=== PATIENT | male | born 1940 ===

== ENCOUNTER → 2016-10-21 | Outpatient (REF) | LOC: ZLAB.WCH 10:44 | DX: Z01.89 Encounter for other specified special examinations (principal) ==

== ENCOUNTER 2021-02-20 07:59 | Inpatient (IN) | payer MEDICARE ==
[~2021-02-20] VITALS: Ht 172.7 cm; Wt 74.2 kg
[2021-02-20] MEDS ORDERED: ASPIRIN 81M81 MG/TA2 PO (18:29)
[2021-02-20] MEDS ORDERED: LIPITOR 10MG10 MG PO (18:29)
[2021-02-20 18:30] VITALS: BP 131/84; PULSE 123; TEMP 98.8
[2021-02-20] MEDS ORDERED: BUSPAR DIVIDOSE15 MG PO (18:30)
[2021-02-20] MEDS ORDERED: LOPRESSOR 225 MG/TAB PO (18:30)
--- NOTE | 2021-02-20 18:30 | NUR ---
PATIENT ADMITED INTO ROOM 349 VIA EMS FROM [facility]. PATIENT IS A&O. PATIENT LIVES WITH DAUGHTER AT HOME. DAUGHTER AT BEDSIDE. NOTED ON ARRIVAL PATIENT HR IN THE 120'S. [place] REPORTED HR OF 60'S. PATIENT ASYMPOTOMATIC. NOTIFIED HOSPITALIST AND CALLED FOR A STATE EKG. PATIENT'S DAUGHTER REPORTS HE HAD A-FIB IN LATE DECEMBER BUT CONVERTED RIGHT AWAY AND HAS NOT HAD AN ISSUE SINCE. EKG CONFIRMED A-FIB. ALL OTHER VSS. SEE ORDERS FOR TELE MONITOR. SENIOR MANAGER MMCOE NOTIFIED, NO TELE BOXES AVAILABE AT THIS TIME. HEAD TO TOE ASSESSMENT COMPLETE. HOSPITALIST CONTRACT ENGINEER TOOK EMS PAPERS AND IS WORKING ON ENTERING MED REC.
[2021-02-20] MEDS ORDERED: ELIQUIS 5MG PO (18:31)
[2021-02-20] MEDS ORDERED: SINEMET CR 50 M1 TER PO (18:31)
[2021-02-20] MEDS ORDERED: LEXAPRO 10MG10 MG PO (18:31)
[2021-02-20] MEDS ORDERED: REMERON 15M15 MG/TA1 PO (18:31)
[2021-02-20] MEDS ORDERED: REMERON30 MG PO (19:00)
--- NOTE | 2021-02-20 19:00 | NUR ---
TELE NOW INPLACE. HOSPITALIST AT BEDSIDE VISITING WITH PATIENT & DAUGHTER.
[2021-02-20 20:20] VITALS: BP 128/69; PULSE 59; TEMP 98.3
[2021-02-20 20:39] LABS: TROPONIN-I 0.013 ng/mL (0.000-0.035)
--- NOTE | 2021-02-20 22:00 | NUR ---
Patient is resting in bed with daughter in room. He is alert and oriented x 4, VSS, on tele, reports discomfort in the left leg. IV fluids running at 75 ml/hr. Guzman hose applied in right leg. Assessment completed. No further needs at this time. Call light within reach.
[2021-02-20 22:13] VITALS: BP 145/77; PULSE 67; TEMP 98.2
[2021-02-21] VITALS (7 sets, daily range): BP systolic 118–166; BP diastolic 61–86; PULSE 57–106; TEMP 98–99.2
--- NOTE | 2021-02-21 06:49 | NUR ---
Patient has been sleeping most of the night. He has been receiving NS fluidis 75/ml/hr. Schedule medication provided. ICE in left hip. No additional pain med required. Shift report will be given to day nurse.
[2021-02-21 07:59] LABS: BASO % 0.4 % (0.0-2.0); EOS # 0.5 (0.0-0.7); EOS % 5.1 % (0-4.0); GRAN # 6.3 (1.4-6.5); GRAN % 64.5 % (42.2-75.2); HEMOGLOBIN 11.1 g/dl (13.5-18.0); LYMPH # 1.9 (1.2-3.4); LYMPH % 19.9 % (20.0-51.0); MEAN CELL VOLUME 94 fl (80.0-100.0); MEAN CORPUSCULAR HEMOGLOBIN 30 pg (27.0-31.0); MEAN CORPUSCULAR HGB CONC 32 g/dl (33.0-37.0); MEAN PLATELET VOLUME 10.5 fl (7.4-10.4); MONO # 0.9 (0.1-0.6); MONO % 9.6 % (1.7-9.3); PLATELET COUNT 150 K/mm3 (130-400); RED BLOOD COUNT 3.72 M/mm3 (4.20-5.60); REDCELL DISTRIBUTION WIDTH-CV 13.3 % (11.5-14.5)
[2021-02-21 08:00] LABS: HEMATOCRIT 34.9 % (42.0-52.0)
[2021-02-21 08:06] LABS: INR 1.3 (0.8-3.0); PROTHROMBIN TIME 14.2 SECONDS (9.7-12.8)
--- NOTE | 2021-02-21 09:24 | NUR ---
First visit from the supply chain technician. Patient was asleep. Senior Technical Specialist prayed for patient while standing outside their door.
--- NOTE | 2021-02-21 11:06 | NUR ---
SW met with patient at b/s to discuss d/c needs. Patient states he lives with his daughter, son n law and a grandchild in [place] where there are no stairs. He is independent with ADL's, he has grab bars in the bathroom, a walker, cane, and a shower bench. Patient is currently receiving HHC through [facility]. We discussed possible rehab at time of d/c and he is agreeable but preferred this worker speak with his dtr, Georgina, who is also his designated DPOA. GRACIELA spoke with Georgina via phone and she confirmed the above info. She states that patient was in [facility] prior and this would be their preference if rehab is needed. Patient is scheduled for surg 02/22 and GRACIELA will follow. Patient sees Nga Corea PA-C and receives meds through [facility]. *Patient may d/c to rehab; GRACIELA will cont to follow
--- NOTE | 2021-02-21 12:20 | NUR ---
PATIENT APPEARS TO BE IN A-FIB/A-FLUTTER FROM 100-125. HOSPITALIST NOTIFIED. STAT EKG.
--- NOTE | 2021-02-21 12:27 | NUR ---
RT AT BEDSIDE NOW TO OBTAIN EKG
[2021-02-21 12:43] LABS: CALCIUM 8.1 mg/dL (8.4-10.2); CREATININE, serum 1.29 (0.66-1.25)
--- NOTE | 2021-02-21 22:29 | NUR ---
Patient assessed around 1999. Alert, disoriented to time, thougt it was morning. Reoriented very easily. Reports some pain to left hip, only with movement. Peripheral IV to right forearm, with fluids running per orders. Denies SOB and dyspnea. LS CTA. Respirations even and unlabored. Capillary refill less than 3 seconds. Non-tenting skin turgor. BSAx4. Abdomen soft and non-tender. No edema. Ice to left hip, elevated on pillow. Patient had spilled urinal. Bed changed and bed bath given. Called and and updated daughter on paitent as requested. Patient voices no questions, needs, or concerns at this time. Resting in bed with call light within reach.
[2021-02-22] VITALS (11 sets, daily range): BP systolic 99–167; BP diastolic 51–83; PULSE 50–74; TEMP 98.2–98.9
--- NOTE | 2021-02-22 05:05 | NUR ---
Patient has received scheduled Acetaminophen per orders. Has been calling for assistance with urinal. Has been NPO since midnight for left hip surgery scheduled for today. Voices no questions, needs, or concerns at this time. Resting in bed with call light within reach. Bed alarm on. IV fluids continue per orders.
[2021-02-22 07:00] LABS: BASO # 0.1 (0.0-0.2); BASO % 0.5 % (0.0-2.0); EOS # 0.5 (0.0-0.7); EOS % 4.6 % (0-4.0); GRAN # 6.9 (1.4-6.5); GRAN % 68.5 % (42.2-75.2); HEMOGLOBIN 10.9 g/dl (13.5-18.0); LYMPH # 1.6 (1.2-3.4); MEAN CELL VOLUME 93 fl (80.0-100.0); MEAN CORPUSCULAR HEMOGLOBIN 30 pg (27.0-31.0); MEAN CORPUSCULAR HGB CONC 32 g/dl (33.0-37.0); MEAN PLATELET VOLUME 10.4 fl (7.4-10.4); MONO % 9.9 % (1.7-9.3); PLATELET COUNT 137 K/mm3 (130-400); RED BLOOD COUNT 3.65 M/mm3 (4.20-5.60); REDCELL DISTRIBUTION WIDTH-CV 13.1 % (11.5-14.5)
[2021-02-22 07:01] LABS: HEMATOCRIT 33.9 % (42.0-52.0)
[2021-02-22 07:14] LABS: CREATININE, serum 1.27 (0.66-1.25)
--- NOTE | 2021-02-22 08:30 | NUR ---
PATIENT IS A&O WITH OCCATIONAL FORGETFULNESS NOTED. VSS ON TELE. NO C/O PAIN IN LLE. PATIENT SCHEDULED FOR SURGICAL REPAIR OF THE LEFT HIP FRACTURE TODAY. NPO. CONSENT ON CHART. AM MEDS GIVEN WITH A SIP OF WATER. HEAD TO TOE ASSESSMENT COMPLETE, SEE CHARTING. NO OTHER NEEDS AT THIS TIME. CALL LIGHT IN REACH. BED ALARM ON.
--- NOTE | 2021-02-22 09:11 | NUR ---
Assistive Technology Trainer followed up with patient to review discharge plan and discuss a second preference. SW reviewed options including local SNFs and patient would like SW to speak with his daughter, Georgina about this. GRACIELA contacted Georgina who confirmed [facility] is first preference and selected [facility] as second preference. Georgina also advised that she would be agreeable to provide transportation upon discharge if patient goes to [facility]. GRACIELA contacted Ayde at [facility] who advised patient has been there before and will review referral. GRACIELA also contacted Delia at [facility] and faxed referral. Discharge Plan: SNF, 1st preference [facility], 2nd preference [facility]
--- NOTE | 2021-02-22 09:30 | NUR ---
CALLED DAUGHTER TO OBTAIN CONCENT FOR SURGERY OVER THE PHONE WITH TWO RN'S AND GAVE DAUGHTER PATIENT STATUS UPDATE. DAUGHTER PLANS TO BE HERE LATER THIS AM.
--- NOTE | 2021-02-22 09:58 | NUR ---
TELE CALLED AND REPORTED PATIENT IS NOW IN A-FIB IN THE 120'S. HOSPITALIST & ORTHO NOTIFIED. PATIENT DID RECEIVE SCHEDULED AM DOSE OF METOPROLOL 12.5MG. SEE CARDIOLOGY CONSULT. PATIENT SCHEDULED FOR SURGERY TODAY TO REPAIR LEFT HIP FX. CONSENT ON CHART. NPO. AWAITING ORDERS FROM CARDIOLOGY
--- NOTE | 2021-02-22 11:05 | NUR ---
PATIENT GOING DOWN TO OR VIA BED. CLEARED AFTER SECOND DOSE OF CARDIAC MEDS. PATIENT OFF FLOOR TO OR
--- NOTE | 2021-02-22 13:22 | NUR ---
Partner spoke with Delia at [facility] who advised they could tentatively accept pending therapy notes and bed availability. Discharge Plan: [facility] or [facility]
--- NOTE | 2021-02-22 13:35 | NUR ---
PATIENT BACK IN ROOM POST OP. A&O. VSS ON TELE. HR NOW SR IN THE 50'S. DENIES PAIN OR NAUSEA. PATIENT DOING WELL POST OP. DAUGHTER AT BEDSIDE. CALL LIGHT IN REACH. BED ALARM ON.
--- NOTE | 2021-02-22 21:00 | NUR ---
Patient is sleeping in bed, easily arousable, alert and oriented x 4. Reports no pain, vital sighs stable, no nausea or vomiting. Tele in place. SCD removed and re applied. Left hip cover with 3 sites with gauze and tegaderm. Assessment completed. Meds provided. No further needs at this time. call lighe within reach.
--- NOTE | 2021-02-23 00:42 | NUR ---
Patient was disoriented but calm. He asked why he is in the hospital. VSS. Reoriented and explained reasons and interventions. Patient came back to sleep.
[2021-02-23 03:43] VITALS: BP 141/67; PULSE 60; TEMP 98.7
--- NOTE | 2021-02-23 05:28 | NUR ---
Patient has had a very calm night. He is taking his scheduled medications, no complains of pain, seems to be able to sleep with no problems. ICE placed in left hip. No further needs at this time.
[2021-02-23 07:25] LABS: CREATININE, serum 1.4 (0.66-1.25); POTASSIUM 4.1 mmol/L (3.4-5.0)
[2021-02-23 07:27] LABS: HEMOGLOBIN 10.5 g/dl (13.5-18.0)
[2021-02-23 07:43] LABS: HEMATOCRIT 33.9 % (42.0-52.0)
[2021-02-23 08:00] VITALS: BP 150/61; PULSE 56; TEMP 97.7
[2021-02-23 11:20] VITALS: BP 137/73; PULSE 65; TEMP 98.5
--- NOTE | 2021-02-23 11:23 | NUR ---
Pt assessment completed and charted, meds administered per aug. Pt alert, daughter at bedside this morning. Pt denied pain this morning during assessment being at rest. This nurse and GELATIN DYNAMITE PACKING OPERATOR assisted pt in standing w/ walker to use urinal at this time, pt c/o of some pain to left hip with movement and standing, requesting pain medication. Will administer per aug. Pt tolerated standing well w/ 2A and walker. Pt has IVF infusing w/o issue. Tolerating PO well. BS activeX4. Pt denies further needs at this time. Call light within reach.
--- NOTE | 2021-02-23 14:05 | NUR ---
Childcare Administrator faxed clinical updates to Delia at [facility]. GRACIELA followed up with Ayde at [facility] who advised at this time they anticipate that they will be able to accept patient upon discharge. SW attempted to contact patient's daughter, Georgina and left her a message. Discharge Plan: [facility]
--- NOTE | 2021-02-23 14:10 | NUR ---
Patient's daughter, Georgina returned [employer]'s phone call. GRACIELA updated Georgina on the discharge plan to [facility].
--- NOTE | 2021-02-23 14:31 | NUR ---
Tele called about pt HR in 130s-140s. This nurse checked on pt, pt stated he felt fine, appears asymptomatic. Hospitalist notified, pt did not receive metoprolol this morning due to HR <60. EKG order placed, RT notified. Awaiting med orders. No further needs at this time.
--- NOTE | 2021-02-23 15:08 | NUR ---
Pt ambulated with this nurse and PT from recliner around bed, in room w/ walker and gait belt. Tolerated well. Rating pain 4/10, received tylenol PRN. Refused ice for left hip. Site is [facility]. Neuros WNL. No further needs at this time. Call light within reach.
[2021-02-23 16:00] VITALS: BP 111/53; PULSE 64; TEMP 98.7
--- NOTE | 2021-02-23 20:00 | NUR ---
PT SITTING UP IN RECLINER. DENIES PAIN AT PRESENT TIME. REFUSED DINNER EARLIER BUT ASKED FOR SANDWICH. TOOMK 100%.
[2021-02-23 20:34] VITALS: BP 112/76; PULSE 59; TEMP 98.4
[2021-02-23 23:17] VITALS: BP 147/72; PULSE 65; TEMP 97.7
--- NOTE | 2021-02-23 23:30 | NUR ---
2:1 ASSIST TO BSC FOR BM. JUST PASSED GAS. VOIDED TEA COLRED URINE. ENC PO INTAKE.
[2021-02-24 03:09] VITALS: BP 139/64; PULSE 59; TEMP 98.1
--- NOTE | 2021-02-24 06:27 | NUR ---
PT HAS SLEPT WELL TH IS SHIFT. C/O CPONSTIPATION- SEE MAR FOR [place] GIVEN LAST NIGHT.
[2021-02-24 06:38] LABS: BASO % 0.5 % (0.0-2.0); EOS # 0.6 (0.0-0.7); EOS % 6.6 % (0-4.0); GRAN # 5.3 (1.4-6.5); GRAN % 61.1 % (42.2-75.2); LYMPH # 1.8 (1.2-3.4); LYMPH % 20.7 % (20.0-51.0); MEAN CELL VOLUME 97 fl (80.0-100.0); MEAN CORPUSCULAR HGB CONC 31 g/dl (33.0-37.0); MEAN PLATELET VOLUME 10.7 fl (7.4-10.4); MONO # 0.9 (0.1-0.6); MONO % 10.6 % (1.7-9.3); PLATELET COUNT 140 K/mm3 (130-400); RED BLOOD COUNT 3.13 M/mm3 (4.20-5.60); REDCELL DISTRIBUTION WIDTH-CV 13.5 % (11.5-14.5)
[2021-02-24 06:40] LABS: HEMATOCRIT 30.5 % (42.0-52.0); HEMOGLOBIN 9.4 g/dl (13.5-18.0); MEAN CORPUSCULAR HEMOGLOBIN 30 pg (27.0-31.0)
[2021-02-24 06:45] LABS: CALCIUM 7.7 mg/dL (8.4-10.2); CREATININE, serum 1.36 (0.66-1.25); POTASSIUM 4.2 mmol/L (3.4-5.0)
[2021-02-24 08:00] VITALS: BP 150/65; PULSE 58; TEMP 97.6
--- NOTE | 2021-02-24 09:00 | NUR ---
Pt doing well this morning. States that he is feeling good right now. Breakfast has just been delivered. PT does have family in the room. Ice pack to left hip. Call light within reach, will continue to monitor
[2021-02-24 11:53] VITALS: BP 112/48; PULSE 51
--- NOTE | 2021-02-24 12:00 | NUR ---
Pt currently sitting up in the chair, reports pain is not too bad. Ordered him a lunch tray. No needs verbalized, chair alarm on and call light within reach
--- NOTE | 2021-02-24 12:16 | NUR ---
GRACIELA spoke with Diane ([facility]) and they are awaiting patient when he is ready to discharge. GRACIELA will call for Doc to Doc phone number when discharged. Nurse to Nurse # is: *D/C to [facility] when medically ready
--- NOTE | 2021-02-24 14:47 | NUR ---
Pt back in bed at this time. He was a max one assist, pain was tolerable. Pt stated he is tired, hoping for a nap
[2021-02-24 15:48] VITALS: BP 122/65; PULSE 57; TEMP 98.1
[2021-02-24 19:50] VITALS: BP 122/61; PULSE 61; TEMP 99
[2021-02-24 23:55] VITALS: BP 131/75; PULSE 54; TEMP 98.8
--- NOTE | 2021-02-25 00:21 | NUR ---
Patient assessed around 2019. Alert and oriented x 4, and able to make needs known. Denies having pain and discomfort at this time. Peripheral IV to right forearm. Denies SOB and dyspnea. LS CTA. Respirations even and unlabored. HRR. Telemetry in place. Capillary refill less than 3 seconds. Non-tenting skin turgor. BSAx4. Abdomen soft and non-tender. No edema. Dressing to left hip CDI. Heels red, blanchable. Floated on pillows. Voices no questions, needs, or concerns at this time. Resting in bed with call ligth within reach.
[2021-02-25 04:28] VITALS: BP 158/68; PULSE 56; TEMP 98
--- NOTE | 2021-02-25 05:52 | NUR ---
Patient has been resting in bed with call light within reach. Has denied having pain and discomfort. Received scheduled APAP. Voices no questions, needs, or concerns at this time. Resting in bed with call light within reach.
[2021-02-25 06:03] LABS: BASO # 0.1 (0.0-0.2); BASO % 0.6 % (0.0-2.0); EOS # 0.5 (0.0-0.7); EOS % 6.1 % (0-4.0); GRAN % 61.2 % (42.2-75.2); LYMPH # 1.9 (1.2-3.4); MEAN CELL VOLUME 95 fl (80.0-100.0); MEAN CORPUSCULAR HGB CONC 31 g/dl (33.0-37.0); MEAN PLATELET VOLUME 10.7 fl (7.4-10.4); MONO # 0.7 (0.1-0.6); MONO % 8.6 % (1.7-9.3); PLATELET COUNT 158 K/mm3 (130-400); RED BLOOD COUNT 3.02 M/mm3 (4.20-5.60); REDCELL DISTRIBUTION WIDTH-CV 13.4 % (11.5-14.5)
[2021-02-25 06:07] LABS: HEMATOCRIT 28.7 % (42.0-52.0); MEAN CORPUSCULAR HEMOGLOBIN 30 pg (27.0-31.0)
[2021-02-25 06:13] LABS: CALCIUM 7.9 mg/dL (8.4-10.2); CREATININE, serum 1.32 (0.66-1.25); POTASSIUM 4.6 mmol/L (3.4-5.0)
[2021-02-25 07:10] VITALS: BP 143/72; PULSE 66; TEMP 98.5
[2021-02-25] MEDS ORDERED: MULTAQ400 MG PO (07:11)
[2021-02-25] MEDS ORDERED: TYLENOL 500MG500 MG PO (07:12)
[2021-02-25] MEDS ORDERED: DUO-KAPS1 CAP PO (07:13)
[2021-02-25] MEDS ORDERED: VITAMIN C500 MG PO (07:13)
[2021-02-25] MEDS ORDERED: OSCAL 500 TAB500 MG PO (07:13)
--- NOTE | 2021-02-25 10:50 | NUR ---
Pt doing well this morning, minimal pain complaints. Pt is tranferring to the chair and ambulates to the bathroom with one assist with a walker. Pt received sponge bath from [facility] [employer] student. Pt daughter should be arriving soon and pt will be transferring this afternoon.
[2021-02-25 11:12] VITALS: BP 143/72; PULSE 66; TEMP 98.5
--- NOTE | 2021-02-25 11:22 | NUR ---
Report called to [facility], all questions answered.
[2021-02-25 12:40] VITALS: BP 115/58; PULSE 91; TEMP 98.1
--- NOTE | 2021-02-25 12:43 | NUR ---
Libertad at [facility]. SW coordinated transport with patient's daughter, Georgina, to arrive by 2:00 02/25. Orders faxed *D/C to [facility]
--- NOTE | 2021-02-25 12:55 | NUR ---
Pt escorted out at this time. Daughter is taking him to [facility] bed
== END 2021-02-25 13:00 | disposition swing bed (61) | DRG 482 ==
LOC: SURG 07:59
PROVIDERS: Nurse Practitioner Family; Orthopaedic Surgery; Physician Assistant
PROC: 0QS706Z Reposition Left Upper Femur with Intramedullary Internal Fixation Device, Open Approach (ICD-10-PCS; principal; 2021-02-22 13:15)
DX: S72.142A Displaced intertrochanteric fracture of left femur, initial encounter for closed fracture (principal); I12.9 Hypertensive chronic kidney disease with stage 1 through stage 4 chronic kidney disease, or unspecified chronic kidney disease; N18.9 Chronic kidney disease, unspecified; I48.0 Paroxysmal atrial fibrillation; D63.1 Anemia in chronic kidney disease; G20 Parkinson's disease; W18.30XA Fall on same level, unspecified, initial encounter; Y92.008 Other place in unspecified non-institutional (private) residence as the place of occurrence of the external cause; Z79.01 Long term (current) use of anticoagulants; Z79.82 Long term (current) use of aspirin; Z86.73 Personal history of transient ischemic attack (TIA), and cerebral infarction without residual deficits; Z88.0 Allergy status to penicillin; Z87.891 Personal history of nicotine dependence
CPT/HCPCS: 99223-AI; 99232-AI; 99233-AI; 99239; A9284; C1713; J0690; J1100; J2250; J2405; J2704; J2795; J7030